=== PATIENT | female | born 1985 | race Hispanic/Latino ===

== ENCOUNTER 2022-01-20 07:33 | Emergency (ER) | payer SELFPAY ==
--- NOTE | 2022-01-20 08:47 | RAD REPORT ---
EXAM DESCRIPTION: RAD - Foot Left 3 View - 01/20/2022 8:39 am CLINICAL HISTORY: Left Foot pain FINDINGS: No fracture or dislocation is seen. Small plantar calcaneal spur
--- NOTE | 2022-01-20 09:04 | EDPHYS ---
Physician Documentation [facility] [place] Name: Drea Lisa Age: 36 yrs Sex: Female : 1985 Arrival Date: 01/20/2022 Time: 07:37 Bed 11 Private MD: ED Physician Sergio Douglass HPI: 01/20 08:11 This 36 yrs old Female presents to ER via Ambulatory with complaints of Foot ms3 Pain. 08:11 36-year-old female with past medical history of restless leg syndrome presents for left ms3 foot pain for 1 month. Patient states the pain is an 8/10, sharp, and becomes worse with walking. Patient denies alleviating factors. Patient denies fevers, chills, ecchymosis.. 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 - Social history:: Smoking status: Patient denies any tobacco usage or history of. ROS: 08:11 MS/extremity: Positive for pain, of the left foot. ms3 08:11 Constitutional: Negative for fever, and chills. ENT: Negative for injury, pain, and discharge, Neck: Negative for injury, pain, and swelling, Cardiovascular: Negative for chest pain, and palpitations. Respiratory: Negative for shortness of breath, cough, wheezing, and pleuritic chest pain, Abdomen/GI: Negative for abdominal pain, nausea, vomiting, diarrhea, and constipation, Skin: Negative for injury, rash, and discoloration. 08:11 All other systems are negative. Exam: 08:11 Constitutional: This is a well developed, well nourished patient who is awake, alert, ms3 and in no acute distress. Head/Face: Normocephalic, atraumatic. Chest/axilla: Normal chest wall appearance and motion. Nontender with no deformity. Cardiovascular: Regular rate and rhythm with a normal S1 and S2. No gallops, murmurs, or rubs. Normal PMI, no JVD. No pulse deficits. Respiratory: Lungs have equal breath sounds bilaterally, clear to auscultation and percussion. No rales, rhonchi or wheezes noted. No increased work of breathing, no retractions or nasal flaring. Abdomen/GI: Soft, non-tender, with normal bowel sounds. No distension or tympany. No guarding or rebound. No evidence of tenderness throughout. Skin: Warm, dry with normal turgor. Normal color with no rashes, no lesions, and no evidence of cellulitis. 08:11 Neuro: Awake and alert, GCS 15, oriented to person, place, time, and situation. Cranial nerves II-XII grossly intact. Motor strength 5/5 in all extremities. Sensory grossly intact. Cerebellar exam normal. Normal gait. Psych: Awake, alert, with orientation to person, place and time. Behavior, mood, and affect are within normal limits. 08:11 Musculoskeletal/extremity: Extremities: noted in the left foot: pain, tenderness. Vital Signs: 07:42 BP 136 / 87; Pulse 97; Resp 17; Temp 98.4; Pulse Ox 100% ; Weight 99.79 kg; Height 5 jl7 ft. 6 in. (167.64 cm); Pain 7/10; 07:42 Body Mass Index 35.51 (99.79 kg, 167.64 cm) jl7 MDM: 08:09 Patient medically screened. ms3 08:11 Differential diagnosis: fracture, sprain, gout. ms3 09:05 Data reviewed: vital signs, nurses notes, radiologic studies, plain films, and as a ms3 result, I will discharge patient. Counseling: I had a detailed discussion with the patient and/or guardian regarding: the historical points, exam findings, and any diagnostic results supporting the discharge/admit diagnosis, radiology results, the need for outpatient follow up, to return to the emergency department if symptoms worsen or persist or if there are any questions or concerns that arise at home. ED course: Discussed x-ray results with patient. Patient to follow-up with Dr. Londono in 2 to 3 days. Patient understands and agrees with plan. All questions were answered. Return precautions discussed include worsening symptoms, or any other concerns.. 01/20 08:34 Order name: Foot Left 3 View; Complete Time: 08:59 EDMS Administered Medications: 09:13 Drug: Ibuprofen 600 mg Route: PO; iw 09:45 Follow up: Response: No adverse reaction; Pain is decreased iw Disposition Summary: 01/20/22 09:04 Discharge Ordered Location: Home ms3 Condition: Stable ms3 Diagnosis - Pain in left foot ms3 Followup: ms3 - With: Mark Londono DPM - When: 2 - 3 days - Reason: Recheck today's complaints Discharge Instructions: - Discharge Summary Sheet ms3 - Foot Pain ms3 Forms: - Medication Reconciliation Form ms3 - Thank You Letter ms3 - Antibiotic Education ms3 - Prescription Opioid Use ms3 Prescriptions: - Ibuprofen 600 mg Oral Tablet - take 1 tablet by ORAL route every 6 hours As needed take with food; 30 tablet; ms3 Refills: 0, Product Selection Permitted Signatures: Dispatcher [employer] Silvia Brock, RN Maria Luisa Gan RN RN jl7 Sims, Marcus, DO DO ms3 Corrections: (The following items were deleted from the chart) 07:44 07:43 Allergies: No Known Allergies; jl7 jl7 08:34 08:00 Ankle Left 3 View+RAD.RAD.[email or web address] ordered. EDMS EDMS
--- NOTE | 2022-01-20 09:04 | ER ---
Nurse's Notes [facility] Name: Drea Lisa Age: 36 yrs Sex: Female : 1985 Arrival Date: 01/20/2022 Time: 07:37 Bed 11 Private MD: Diagnosis: Pain in left foot Presentation: 01/20 07:42 Chief complaint: Patient states: Dorsum of left foot x 1 month, denies traumapain to. jl7 Coronavirus screen: At this time, the client does not indicate any symptoms associated with coronavirus-19. Ebola Screen: No symptoms or risks identified at this time. Initial Sepsis Screen: Does the patient meet any 2 criteria? No. Patient's initial sepsis screen is negative. Does the patient have a suspected source of infection? No. Patient's initial sepsis screen is negative. Risk Assessment: Do you want to hurt yourself or someone else? Patient reports no desire to harm self or others. Onset of symptoms was December 20, 2021. Care prior to arrival: None. 07:42 Method Of Arrival: Ambulatory [facility] 07:42 Acuity: WILLIAM 4 jl7 Triage Assessment: 07:43 General: Appears in no apparent distress. uncomfortable, Behavior is calm, cooperative, jl7 appropriate for age. Pain: Complains of pain in dorsum of left foot. Neuro: Level of Consciousness is awake, alert, obeys commands, Oriented to person, place, time, situation. 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 - Social history:: Smoking status: Patient denies any tobacco usage or history of. Screenin:49 Abuse screen: Denies threats or abuse. Denies injuries from another. Nutritional iw screening: No deficits noted. Tuberculosis screening: No symptoms or risk factors identified. Fall Risk None identified. Assessment: 08:49 Reassessment: Patient appears in no apparent distress at this time. Patient and/or iw family updated on plan of care and expected duration. Pain level reassessed. Patient is alert, oriented x 3, equal unlabored respirations, skin warm/dry/pink. Vital Signs: 07:42 BP 136 / 87; Pulse 97; Resp 17; Temp 98.4; Pulse Ox 100% ; Weight 99.79 kg; Height 5 jl7 ft. 6 in. (167.64 cm); Pain 7/10; 07:42 Body Mass Index 35.51 (99.79 kg, 167.64 cm) jl7 ED Course: 07:37 Patient arrived in ED. rg4 07:38 Sergio Douglass DO is Attending Physician. ms3 07:43 Triage completed. jl7 07:43 Arm band placed on right wrist. jl7 07:45 Patient has correct armband on for positive identification. iw 08:41 Foot Left 3 View In Process Unspecified. EDMS 08:49 Silvia Gibbs, RN is Primary Nurse. iw 08:49 No provider procedures requiring assistance completed. Patient did not have IV access iw during this emergency room visit. 09:03 Mark Londono DPM is Referral Physician. ms3 Administered Medications: 09:13 Drug: Ibuprofen 600 mg Route: PO; iw 09:45 Follow up: Response: No adverse reaction; Pain is decreased iw Medication: 09:00 VIS not applicable for this client. iw Outcome: 09:04 Discharge ordered by MD. ms3 09:13 Discharged to home ambulatory. iw 09:13 Condition: good 09:13 Discharge instructions given to patient, Instructed on discharge instructions, follow up and referral plans. medication usage, Demonstrated understanding of instructions, follow-up care, medications, Prescriptions given X 1. 09:14 Patient left the ED. iw Signatures: Dispatcher [employer] EDMS Silvia Gibbs, RN ARIEL iw Kaela Driscoll rg4 Maria Luisa Carpio RN RN jl7 Sergio Douglass DO DO ms3 Corrections: (The following items were deleted from the chart) 07:44 07:43 Allergies: No Known Allergies; 7 jl7
[2022-01-20] MEDS ORDERED: IBUPROFEN 200 MG TAB PO ONE (09:19)
[2022-01-22 09:09] VITALS: BP 136/87; TEMP 98.4; O2SAT 100
== END 2022-01-20 09:14 | disposition home or self-care (01) ==
LOC: ER 07:33
DX: M79.672 Pain in left foot (principal)
CPT/HCPCS: 99283